=== PATIENT | male | born 2000 | race Caucasian/White ===

== ENCOUNTER 2023-05-16 01:49 | Emergency (ER) | payer OTHER ==
[~2023-05-16] VITALS: Ht 167.6 cm; Wt 57.7 kg
[2023-05-16] MEDS ORDERED: PAXLOVID CO-PA1 EACH PO ×2 (02:31→02:37)
[2023-05-16 02:43] VITALS: BP 116/74; PULSE 89; TEMP 99
== END 2023-05-16 02:43 | disposition home or self-care (01) ==
LOC: COL.ER 01:49 → EDSEX 01:52 → COL.ER 01:52
DX: U07.1 COVID-19 (principal); R50.9 Fever, unspecified; R51.9 Headache, unspecified; J02.9 Acute pharyngitis, unspecified; R11.0 Nausea